=== PATIENT | male | born 1985 | race American Indian/Alaskan Native ===

== ENCOUNTER 2017-04-08 21:55 | Emergency (ER) | payer MEDICARE, MEDICAID ==
[2017-04-08 22:02] VITALS: BP 144/85; PULSE 102; RESP 18; TEMP 98.4; O2SAT 99
--- NOTE | 2017-04-08 22:09 | C.PDOC ---
History Of Present Illness 31 year old male who presents to the ER with a complaint of sore throat for the past 3 days, associated with a subjective fever. Denies cough or congestion. no difficulty breathign or swallowing. Time Seen by Provider: 04/08/17 22:02 Chief Complaint (Nursing): ENT Problem History Per: Patient History/Exam Limitations: None Onset/Duration Of Symptoms: Days Current Symptoms Are (Timing): Still Present Quality (Mouth/Throat): Other (Sore) Symptoms Have Been: Continuous Anticoagulant/Antiplatlet Use?: No Past Medical History Reviewed: Historical Data, Nursing Documentation, Vital Signs Vital Signs: Last Vital Signs Temp 98.4 F 04/08/17 21:59 Pulse 102 H 04/08/17 21:59 Resp 18 04/08/17 21:59 BP 144/85 04/08/17 21:59 Pulse Ox 99 04/08/17 22:22 - Medical History PMH: No Chronic Diseases Surgical History: No Surg Hx Family History: States: Unknown Family Hx - Social History Hx Alcohol Use: No Hx Substance Use: No Review Of Systems Constitutional: Positive for: Fever (Subjective) ENT: Positive for: Throat Pain. Negative for: Nose Congestion Respiratory: Negative for: Cough Physical Exam - Physical Exam Appears: Non-toxic, No Acute Distress Skin: Normal Color, Warm, Dry Head: Atraumatic, Normacephalic Eye(s): bilateral: Normal Inspection, EOMI Ear(s): Bilateral: Normal Oral Mucosa: Moist Throat: Erythema, Exudate, Other (Uvula midline) Neck: Normal, Normal ROM, Supple Lymphatic: Normal Exam Chest: Symmetrical Cardiovascular: Rhythm Regular Respiratory: Normal Breath Sounds, No Rales, No Rhonchi, No Wheezing Gastrointestinal/Abdominal: Soft, No Tenderness Neurological/Psych: Oriented x3, Normal Speech, Normal Cognition Gait: Steady ED Course And Treatment O2 Sat by Pulse Oximetry: 99 (Room air) Pulse Ox Interpretation: Normal Progress Note: Patient given Rx and instructed to follow up with PMD in 1-2 days or return to ER if symptoms worsen. Disposition - Disposition Referrals: Louisa Nicholson MD [Primary Care Provider] - Disposition: HOME/ ROUTINE Disposition Time: 22:08 Condition: STABLE Additional Instructions: Follow up with your primary medical doctor or clinic in 2-5 days for further evaluation. Take medications as prescribed. Return to the emergency department at any time if symptoms persist or worsen. Prescriptions: Amoxicillin 875 mg PO BID #14 tablet Ibuprofen [Motrin] 600 mg PO Q6 PRN #20 tab PRN Reason: Pain, Mild (1-3) Instructions: Pharyngitis (ED) Forms: [facility] (Frisian) - Clinical Impression Clinical Impression: Pharyngitis - Scribe Statement The provider has reviewed the documentation as recorded by the Scribe Hayden Guevara All medical record entries made by the Yadyibkimberly were at my direction and personally dictated by me. I have reviewed the chart and agree that the record accurately reflects my personal performance of the history, physical exam, medical decision making, and the department course for this patient. I have also personally directed, reviewed, and agree with the discharge instructions and disposition.
== END 2017-04-08 22:34 | disposition home or self-care (01) ==
LOC: C.ER 21:55 → SUPCPDRO 21:55 → C.ER 22:34
DX: J02.9 Acute pharyngitis, unspecified (principal)